=== PATIENT | female | born 2005 | race Two or more races ===

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

== ENCOUNTER 2024-06-16 11:49 | Inpatient (IN) | payer MEDICAID ==
[~2024-06-16] VITALS: Ht 149.9 cm; Wt 60.2 kg
--- NOTE | 2024-06-16 12:11 | ED.PDOC ---
HPI Comments 19 year old female presents to the ED with chief complaint of chest pain. Patient reports that she has been experiencing substernal chest pain that radiates to her back since yesterday afternoon. Patient relays that deep breaths exacerbate her pain. Patient denies any SOB, cough, fever, chills, dizziness, or headache. Chief Complaint: Chest Pain Time Seen by MD: 12:09 Reviewed Notes: Nurses Notes, Medications, Allergies Allergies: Coded Allergies: NO KNOWN ALLERGIES (Unverified , 03/04/17) Information Source: Patient Mode of Arrival: Ambulatory Severity: Moderate Timing: Days Duration: Since onset Prehospital treatment: None Location: Substernal Radiation: Back Quality: Aching Onset: At Rest Cardiac Risk Factors: None PE Risk Factors: None History of: None Associated Signs and Symptoms: None Past Medical History PAST MEDICAL HISTORY: Denies Surgical History: Denies all surgeries [employer]ER History: 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 Family History Family History: No family hx of DM, No family hx of Heart annie, No family hx of HTN Social History Smoker: Non-Smoker Alcohol: Denies ETOH Use Drugs: Denies Drug Use Lives In: Home Constitutional: denies: chills, diaphoresis, fatigue, fever, malaise, sweats, weakness, others EENTM: denies: blurred vision, double vision, ear bleeding, ear discharge, ear drainage, ear pain, ear ringing, eye pain, eye redness, hearing loss, mouth pain, mouth swelling, nasal discharge, nose bleeding, nose congestion, nose pain, photophobia, tearing, throat pain, throat swelling, voice changes, others Respiratory: denies: cough, hemoptysis, orthopnea, SOB at rest, shortness of breath, SOB with excertion, stridor, wheezing, others Cardiovascular: reports: chest pain; denies: dizzy spells, diaphoresis, Dyspnea on exertion, edema, irregular heart beat, left arm pain, lightheadedness, palpitations, PND, syncope, others Gastrointestinal: denies: abdomen distended, abdominal pain, blood streaked bowels, constipated, diarrhea, dysphagia, difficulty swallowing, hematemesis, melena, nausea, poor appetite, poor fluid intake, rectal bleeding, rectal pain, vomiting, others Genitourinary: denies: abnormal vagina bleeding, burning, dyspareunia, dysuria, flank pain, frequency, hematuria, incontinence, pain, , vagina discharge, urgency, others Neurological: denies: dizziness, fainting, headache, left sided numbness, left sided weakness, numbness, paresthesia, pre-existing deficit, right sided numbness, right sided weakness, seizure, speech problems, tingling, tremors, weakness, others Musculoskeletal: denies: back pain, gout, joint pain, joint swelling, muscle pain, muscle stiffness, neck pain, others Integumetry: denies: bruises, change in color, change in hair/nails, dryness, laceration, lesions, lumps, rash, wounds, others Allergic/Immunocompromised: denies: Difficulty Healing, Frequent Infections, Hives, Itching, others Hematologic/Lymphatic: denies: anemia, blood clots, easy bleeding, easy bruising, swollen glands, others Endocrine: denies: excessive hunger, excessive sweating, excessive thirst, excessive urination, flushing, intolerance to cold, intolerance to heat, unexplained weight gain, unexplained weight loss, others Psychiatric: denies: anxiety, bipolar disorder, depression, hopeless, panic disorder, schizophrenia, sleepless, suicidal, others All Other Systems: Reviewed and Negative Physical Exam General Appearance: No Apparent Distress, Normal HEENT: Normal ENT Inspection, PERRL/EOMI Neck: Full Range of Motion, Non-Tender, Normal, Normal Inspection Respiratory: Chest Non-Tender, Lungs Clear, No Accessory Muscle Use, No Respiratory Distress, Normal Breath Sounds Cardiovascular: No Edema, No JVD, No Murmur, No Gallop, Normal Peripheral Pulses, Regular Rate/Rhythm Breast Exam: Deferred Gastrointestinal: No Organomegaly, Non Tender, No Pulsatile Mass, Normal Bowel Sounds, Soft Genitalia: Deferred Pelvic: Deferred Rectal: Deferred Extremities: No calf tenderness, Normal capillary refill, Normal inspection, Normal range of motion, Non-tender, No pedal edema Musculoskeletal : Apperance: Normal Neurologic: Alert, office nurse II-XII nml as Tested, No Motor Deficits, Normal Affect, Normal Mood, No Sensory Deficits Cerebellar Function: Normal Reflexes: Normal Skin: Dry, Normal Color, Warm Lymphatic: No Adenopathy EKG EKG : Pulse Rate (adult): 96 [place]: Normal Cardiac Rhythm: NSR Block: None Hypertrophy: None ST: Normal Was a procedure done? Was a procedure done?: No CP Differential Dx Differential Diagnosis: Heart Failure, PAC's, V-Fib, WPW Differential Diagnosis: CHF, HTN Essential, HTN Accelerated Differential Diagnosis: Chest Wall Pain, Costochondritis, Myocardial Infarction, Pericarditis, Pneumonia X-Ray, Labs, Meds, VS Vital Signs Date Time Temp Pulse Resp B/P (MAP) Pulse Ox O2 Delivery O2 Flow Rate FiO2 06/16/24 16:15 98.0 63 17 115/72 (86) 98 98.0 06/16/24 14:02 72 06/16/24 14:00 88 15 102/71 (81) 97 06/16/24 12:44 85 06/16/24 12:30 98.6 104 15 117/88 (98) 97 98.6 06/16/24 12:30 104 15 97 Room Air* 0 21 06/16/24 12:11 96 06/16/24 11:53 96 06/16/24 11:51 98.8 96 16 122/85 (97) 98 Lab Test 06/16/24 15:34 06/16/24 13:50 06/16/24 13:08 06/16/24 12:52 Range/Units Troponin I High Sensitivity 13 17 17 </=34 ng/L Urine Color Yellow Yellow Urine Clarity Turbid H Clear Urine pH 6.0 5.0-9.0 Urine Specific [place] 1.029 1.001-1.035 Urine Protein 1+ H Negative Urine Ketones Negative Negative Urine Blood 2+ H Negative /uL Urine Nitrite Negative Negative Urine Bilirubin Negative Negative Urine Urobilinogen 2 H Negative mg/dL Urine Leukocyte Esterase 3+ Negative /uL Urine RBC 15 0 - 4 /hpf Urine WBC 60 0 - 5 /hpf Urine Squamous Epithelial Cells Few <5 /hpf Urine Calcium Oxalate Crystals Mod None Seen Urine Bacteria None seen None Seen /hpf Urine Mucus Few None Seen Urine Glucose Normal Normal mg/dL White Blood Count 10.2 4.4-10.8 10^3/uL Red Blood Count 5.30 H 4.0-5.20 10^6/uL Hemoglobin 15.2 12.2-16.2 g/dL Hematocrit 44.5 36.0-46.0 % Mean Corpuscular Volume 84.0 80.0-100.0 fL Mean Corpuscular Hemoglobin 28.7 28.0-32.0 pg Mean Corpuscular Hemoglobin Concent 34.1 32.0-36.0 g/dL Red Cell Distribution Width 13.6 11.8-14.3 % Platelet Count 217 140-450 10^3/uL Mean Platelet Volume 7.9 6.9-10.8 fL Neutrophils (%) (Auto) 69.8 37.0-80.0 % Lymphocytes (%) (Auto) 15.8 10.0-50.0 % Monocytes (%) (Auto) 13.3 H 0.0-12.0 % Eosinophils (%) (Auto) 0.8 0.0-7.0 % Basophils (%) (Auto) 0.3 0.0-2.0 % Neutrophils # (Auto) 7.1 1.6-8.6 10 ^3/uL Lymphocytes # (Auto) 1.6 0.4-5.4 10 ^3/uL Monocytes # (Auto) 1.4 H 0-1.3 10 ^3/uL Eosinophils # (Auto) 0.1 0-0.8 10 ^3/uL Basophils # (Auto) 0 0-0.2 10 ^3/uL Nucleated Red Blood Cells 0.1 % Sodium Level 139 136-145 mmol/L Potassium Level 4.0 3.5-5.1 mmol/L Chloride Level 104 98-107 mmol/L Carbon Dioxide Level 29 20-31 mmol/L Anion Gap 6 5-15 Blood Urea Nitrogen 10 9-23 mg/dL Creatinine 0.68 0.550-1.02 mg/dL Glomerular Filtration Rate Calc 128 >90 mL/min BUN/Creatinine Ratio 14.7 10.0-20.0 Serum Glucose 101 74-106 mg/dL Calcium Level 9.8 8.7-10.4 mg/dL Current Medications Medications (Trade) Dose Ordered Sig/Alena Route Start Time Stop Time Status Last Admin Acetaminophen (Tylenol Tablet) 650 mg ONCE ONCE PO 06/16/24 12:15 06/16/24 12:16 DC 06/16/24 12:33 Ketorolac Tromethamine (Toradol Injection) 15 mg ONCE ONCE IM 06/16/24 12:15 06/16/24 12:16 DC 06/16/24 12:33 Chest XR: 1. No acute cardiopulmonary pathology. CT Angio Chest: No pulmonary embolism. No aortic dissection or aneurysm. Tiny foci of air in the nondependent portion of the left ventricle and pulmonary trunk. Critical findings Critical Result: Tiny of air in the left ventricle and pulmonary trunk. Images Reviewed?: Images reviewed and evaluated by me Time of 1ST Reevaluation: 13:09 Reevaluation 1ST: Unchanged Patient Education/Counseling: Diagnosis, Treatment Family Education/Counseling: No Family Present Departure 1 Departure Time of Disposition: 15:46 (Patient with air in the ventricle pulmonary trunk. Admit patient to the hospital for further workup) Impression: Primary Impression: Chest pain Qualified Codes: R07.9 - Chest pain, unspecified Additional Impression: Shortness of breath Disposition: 09 ADMITTED INPATIENT Admit to: Tele Condition: Guarded Critical Care Note Critical Care Time?: Yes Critical care comment: Acute Chest Pain Authorized and Performed by: Amy Constantino MD Total critical care time: Approximately 48 minutes Due to a high probability of clinically significant, life threatening deterioration, the patient required my highest level of preparedness to intervene emergently and I personally spent this critical care time directly and personally managing the patient. This critical care time included obtaining a history; examining the patient; pulse oximetry; ordering and review of studies; arranging urgent treatment with development of a management plan; evaluation of patient's response to treatment; frequent reassessment; and, discussions with other providers. This critical care time was performed to assess and manage the high probability of imminent, life-threatening deterioration that could result in multi-organ failure. It was exclusive of separately billable procedures and treating other patients and teaching time. Please see my other sections and the rest of the note for further information on patient assessment and treatment. Stability Stability form required: No Heart Score Heart Score: Heart Score Response (Comments) Value History Moderate Suspicious 1 EKG Repolarization Disturb 1 Age <45 0 Risk Factors No known risk factors 0 Troponin Normal limit 0 Total 2 I personally scribed for AMY CONSTANTINO MD ([email or web address]) on 06/16/24 at 12:11. Electronically submitted by Lakhwinder Shah ([email or web address]). I personally scribed for AMY CONSTANTINO MD ([email or web address]) on 06/16/24 at 12:12. Electronically submitted by Lakhwinder Shah ([email or web address]). I personally scribed for AMY CONSTANTINO MD ([email or web address]) on 06/16/24 at 12:42. Elect ronically submitted by Lakhwinder Shah ([email or web address]). I personally scribed for AMY CONSTANTINO MD ([email or web address]) on 06/16/24 at 17:29. Elec tronically submitted by Lakhwinder Shah ([email or web address]). AMY CONSTANTINO MD Jun 16, 2024 12:11
--- NOTE | 2024-06-16 12:26 | ECG ---
[facility] Test Date: 2024-06-16 Test Time: 11:53:27 Pat Name: BRONSON OSMAN Department: er Room: 0297T Gender: F Wrister: mariano : 2005 Requested By: AMY ROSS Order Number: [id number] Reading MD: Milton Tobin Measurements Intervals [place] Rate: 96 P: 64 AK: 114 QRS: 68 QRSD: 88 T: 17 QT: 351 QTc: 444 Interpretive Statements Sinus rhythm Borderline short AK interval Borderline T abnormalities, anterior leads Electronically Signed On 06-19-2024 14:28:31 PDT by Milton Tobin Please click the below link to view image of tracing.
[2024-06-16 12:30] VITALS: PULSE 104; RESP 15; O2SAT 97
--- NOTE | 2024-06-16 12:32 | DVH ---
Chest x-ray Technique: PA and lateral views REASON FOR EXAM: chest pain Comparison: None FINDINGS: Heart size is normal. There are no infiltrates or effusions. No bony thoracic abnormaliti es. IMPRESSION: 1. No acute cardiopulmonary pathology.
[2024-06-16] MEDS: ACETAMINOPHEN 325 MG TAB PO ONE (12:33)
[2024-06-16] MEDS: KETOROLAC TROMETH 30 MG/ML 1ML VIAL IM ONE (12:33)
[2024-06-16 13:10] LABS: Urine Bacteria None Seen /hpf (None Seen)
[2024-06-16 13:17] LABS: Basophils # (auto) 0 10 ^3/uL (0-0.2); Basophils % (auto) 0.3 % (0.0-2.0); Eosinophils # (auto) 0.1 10 ^3/uL (0-0.8); Eosinophils % (auto) 0.8 % (0.0-7.0); Hematocrit 44.5 % (36.0-46.0); Hemoglobin 15.2 g/dL (12.2-16.2); Lymphocytes # (auto) 1.6 10 ^3/uL (0.4-5.4); Lymphocytes % (auto) 15.8 % (10.0-50.0); Mean Corpuscular Hemoglobin 28.7 pg (28.0-32.0); Mean Corpuscular Hgb Conc. 34.1 g/dL (32.0-36.0); Monocytes # (auto) 1.4 10 ^3/uL (0-1.3); Monocytes % (auto) 13.3 % (0.0-12.0); Neutrophils # (auto) 7.1 10 ^3/uL (1.6-8.6); Neutrophils % (auto) 69.8 % (37.0-80.0); Nucleated Red Blood Cells % 0.1 %; Platelet Count (auto) 217 10^3/uL (140-450); Red Cell Distribution Width 13.6 % (11.8-14.3); White Blood Cell 10.2 10^3/uL (4.4-10.8)
[2024-06-16 13:26] LABS: Urine Blood 2+ /uL (Negative); Urine Clarity Turbid (Clear); Urine Color Yellow (Yellow); Urine Mucus FEW (None Seen); Urine Protein, UAD 1+ (Negative); Urine Specific Gravity 1.029 (1.001-1.035); Urine Urobilinogen 2 mg/dL (Negative); Urine WBC 60 /hpf (0 - 5)
[2024-06-16 13:32] LABS: Anion Gap 6 (5-15); Carbon Dioxide 29 mmol/L (20-31); Chloride 104 mmol/L (98-107); Sodium 139 mmol/L (136-145)
[2024-06-16 13:33] LABS: Calcium 9.8 mg/dL (8.7-10.4)
[2024-06-16 13:37] LABS: Glucose 101 mg/dL (74-106)
[2024-06-16 13:38] LABS: BUN/Creatinine Ratio 14.7 (10.0-20.0); Blood Urea Nitrogen 10 mg/dL (9-23)
[2024-06-16] MEDS: IOHEXOL 350 MG/ML 100ML IJ ONE (16:50)
--- NOTE | 2024-06-16 17:23 | DVH ---
CTA Chest with intravenous contrast INDICATION: chest pain, sob, abnormal ekg Comparison Study: None available at time of dictation. TECHNIQUE: Multidetector spiral CTA of the chest was performed of the chest with intravenous contrast . PULMONARY ANGIOGRAPHY PROTOCOL was utilized using a bolus-tracking technique centered on the main p ulmonary artery. Axial, coronal and sagittal multiplanar and MIP reformats were performed. Radiation Dose : 1. Chest: CTDI volume is 7.69 mGy. Dose-length product is 239.3 mGy*cm The dose indicators for CT are the volume Computed Tomography (CT) Dose Index (CTDIvol) and the Dose Length Product (DLP), and are measured in units of mGy and mGy-cm, respectively. These indicators are not patient dose, but values generated from the CT scanner acquisition factors. The report includes radiation exposure data for exposures received during this examination. Findings: Pulmonary artery: No evidence of pulmonary embolism. Tiny foci of air seen in the nondependent portion of the pulmonary trunk. Lower neck: Within normal limits. Lungs: Within normal limits. Heart/Vascular Structures: Tiny foci of air seen in the nondependent portion of the left ventricle. Lymph Nodes: No adenopathy Pleura: Within normal limits.. Musculoskeletal: Within normal limits.. Body wall: Within normal limits.. Upper abdomen: Within normal limits. IMPRESSION: No pulmonary embolism. No aortic dissection or aneurysm. Tiny foci of air in the nondependent portion of the left ventricle and pulmonary trunk. Critical findings Critical Result: Tiny of air in the left ventricle and pulmonary trunk. Findings discussed with AMY ROSS at 06/16/2024 05:20 PM, and acknowledged receipt and understandi ng of the findings.
[2024-06-16] MEDS ORDERED: ONDANSETRON HCL 4 MG/2 ML VIAL IV PRN (22:30)
[2024-06-16] MEDS ORDERED: MORPHINE SULFATE INJ 2 MG/ml SYRG IV PRN ×2 (22:30)
[2024-06-16] MEDS ORDERED: NITROGLYCERIN 0.4 MG SL TAB SL PRN (22:30)
[2024-06-16] MEDS ORDERED: ACETAMINOPHEN 325 MG TAB PO PRN (22:30)
--- NOTE | 2024-06-16 23:41 | DVHHPRES ---
History of Present Illness Resident Creating Document: DANIEL RUSSELL RESIDENT History of Present Illness Shital Perez a 19 years old female with no significant PMH presented to the ED with the chief complaints of left-sided chest pain since 2 days prior to admission. Patient reported on Sunday morning she woke up with a chest pain which is on and off initially and later changed to constant which is 10/10, sharp, radiating to back and left arm, aggravated by lying down and the back but no relieving factors, associated mild SOB initially. Patient has reports on Sunday she had vomiting and chills and then Sunday started having chest pain. On my assessment patient denies sick contacts, recent travel, for a flu-like illness, abdominal pain, diarrhea, diaphoresis, palpitations, headache and other acute associated symptoms Past Medical History Denies Past Surgical History: None Family History: None Past Social History Lives with a friend. Denies smoking, alcohol and other drug abuse Review of Systems Constitutional: No: Fever, Chills, Sweats, Weakness, Malaise, Other Eyes: No: Pain, Vision change, Conjunctivae inflammation, Eyelid inflammation, Other, Redness ENT: No: Ear pain, Ear discharge, Nose pain, Nose discharge, Nose congestion, Mouth pain, Mouth swelling, Throat pain, Throat swelling, Other Respiratory: Shortness of breath Cardiovascular: Chest Pain Gastrointestinal: Vomiting Genitourinary: No Dysuria, No Frequency, No Incontinence, No Hematuria, No Retention, No Other Musculoskeletal: No: other, neck pain, shoulder pain, arm pain, back pain, hand pain, leg pain, foot pain Skin: No: Rash, Lesions, Jaundice, Bruising, Other Neurological: No: Weakness, Numbness, Incoordination, Change in speech, Co nfusion, Seizures, Other Allergies: Coded Allergies: NO KNOWN ALLERGIES (Unverified , 03/04/17) Medications Current Medications Medications Dose Ordered Sig/Alena Route Start Time Stop Time Status Last Admin Dose Admin Sodium Chloride 10 ml Q8HR IV 06/17/24 06:00 Acetaminophen 325 mg Q4HP PRN PO 06/16/24 22:30 Ondansetron HCl 4 mg Q4HP PRN IV 06/16/24 22:30 Morphine Sulfate 2 mg Q4HPRN PRN IV 06/16/24 22:30 Nitroglycerin 0.4 mg Q5MINP PRN SL 06/16/24 22:30 Morphine Sulfate 2 mg Q30M PRN IV 06/16/24 22:30 Exam Vital Signs Vital Signs Date Time Temp Pulse Resp B/P (MAP) Pulse Ox O2 Delivery O2 Flow Rate FiO2 06/16/24 22:52 98.2 76 16 109/81 (90) 100 98.2 06/16/24 12:30 Room Air* 0 21 Exam General Appearance: Alert, Oriented X3, Cooperative, Not in acute distress HEENT: Atraumatic, Mucous membranes moist/pink Respiratory: Clear to auscultation, Normal air movement, No added sounds Cardiovascular: Regular rate, Normal S1, Normal S2, No murmurs Abdominal: Active bowel sounds, Soft, no distention, no tenderness Extremities: No edema, Normal pulses, No tenderness/swelling Skin: No Significant rash, Neuro: Normal speech, sensorimotor deficits none Psych/Mental Status: Mental status NL, Mood NL Nurse was there as sharperone during examination Labs/Xrays Labs Test 06/16/24 15:34 06/16/24 15:25 06/16/24 13:08 06/16/24 12:52 Range/Units Troponin I High Sensitivity 13 </=34 ng/L Beta HCG, Quantitative 0.1 L 1.5-4.2 mIU/mL B-Type Natriuretic Peptide 17.87 0-100 pg/mL Urine Color Yellow Yellow Urine Clarity Turbid H Clear Urine pH 6.0 5.0-9.0 Urine Specific [place] 1.029 1.001-1.035 Urine Protein 1+ H Negative Urine Ketones Negative Negative Urine Blood 2+ H Negative /uL Urine Nitrite Negative Negative Urine Bilirubin Negative Negative Urine Urobilinogen 2 H Negative mg/dL Urine Leukocyte Esterase 3+ Negative /uL Urine RBC 15 0 - 4 /hpf Urine WBC 60 0 - 5 /hpf Urine Squamous Epithelial Cells Few <5 /hpf Urine Calcium Oxalate Crystals Mod None Seen Urine Bacteria None seen None Seen /hpf Urine Mucus Few None Seen Urine Glucose Normal Normal mg/dL White Blood Count 10.2 4.4-10.8 10^3/uL Red Blood Count 5.30 H 4.0-5.20 10^6/uL Hemoglobin 15.2 12.2-16.2 g/dL Hematocrit 44.5 36.0-46.0 % Mean Corpuscular Volume 84.0 80.0-100.0 fL Mean Corpuscular Hemoglobin 28.7 28.0-32.0 pg Mean Corpuscular Hemoglobin Concent 34.1 32.0-36.0 g/dL Red Cell Distribution Width 13.6 11.8-14.3 % Platelet Count 217 140-450 10^3/uL Mean Platelet Volume 7.9 6.9-10.8 fL Neutrophils (%) (Auto) 69.8 37.0-80.0 % Lymphocytes (%) (Auto) 15.8 10.0-50.0 % Monocytes (%) (Auto) 13.3 H 0.0-12.0 % Eosinophils (%) (Auto) 0.8 0.0-7.0 % Basophils (%) (Auto) 0.3 0.0-2.0 % Neutrophils # (Auto) 7.1 1.6-8.6 10 ^3/uL Lymphocytes # (Auto) 1.6 0.4-5.4 10 ^3/uL Monocytes # (Auto) 1.4 H 0-1.3 10 ^3/uL Eosinophils # (Auto) 0.1 0-0.8 10 ^3/uL Basophils # (Auto) 0 0-0.2 10 ^3/uL Nucleated Red Blood Cells 0.1 % Sodium Level 139 136-145 mmol/L Potassium Level 4.0 3.5-5.1 mmol/L Chloride Level 104 98-107 mmol/L Carbon Dioxide Level 29 20-31 mmol/L Anion Gap 6 5-15 Blood Urea Nitrogen 10 9-23 mg/dL Creatinine 0.68 0.550-1.02 mg/dL Glomerular Filtration Rate Calc 128 >90 mL/min BUN/Creatinine Ratio 14.7 10.0-20.0 Serum Glucose 101 74-106 mg/dL Calcium Level 9.8 8.7-10.4 mg/dL Assessment/Plan Assessment/Plan # pain rule out ACS -reviewed EKG -troponins x3 were negative -ordered chest pain protocol -monitor for symptoms # ? Left ventricular air embolism -evident on CT angiography -consulted cardiology for further evaluation # Hypokalemia -monitored lab -repleting Cardiac diet for now No VTE PPX No GI PPX Goals of care discussed with the patient for more than 27 minutes: Full code status Case management discussed with Dr. Leblanc, patient and nurse Plan discussed with: Patient, Other (RN) My Orders Orders - DANIEL RUSSELL Procedure Category Date Status Time Admit ADMIT 06/16/24 Transmitted 22:20 Allergies FATEMEH 06/16/24 In Process 22:20 Code Status CODE 06/16/24 Transmitted 22:20 Sodium Chloride Lock PHA 06/17/24 In Process (Saline Lock Ns) 06:00 Acetaminophen Tablet PHA 06/16/24 In Process (Tylenol Tablet) 22:30 Ondansetron Hcl PHA 06/16/24 In Process (Zofran) 22:30 Complete Blood Count LAB 06/17/24 Verified 04:00 Comprehensive LAB 06/17/24 Verified Metabolic Panel 04:00 Cardiac DIET 06/17/24 Transmitted Diet-2gna,Lofat,Lochol Breakfast Morphine Sulfate PHA 06/16/24 In Process Injection 22:30 Nitroglycerin PHA 06/16/24 In Process Sublingual (Ntrostat 22:30 Morphine Sulfate PHA 06/16/24 In Process Injection 22:30 Oxygen By Nasal RT 06/16/24 Transmitted Cannula 22:20 Stat Ekg For Chest FATEMEH 06/16/24 In Process Pain 22:20 Notify Md Of Changes FATEMEH 06/16/24 In Process From Base 22:20 Painter Set For FATEMEH 06/16/24 In Process 24 Hours 22:20 Emergency Dysrhythmia FATEMEH 06/16/24 In Process Protocol 22:20 Rhythm Strips Once FATEMEH 06/16/24 In Process Every Shift 22:20 * Cardiology Consult CONS 06/16/24 Transmitted 23:02 Date of Service: Jun 16, 2024 Billing Provider: TOBY LEBLANC MD Common Visit Codes: [id number] INP/OBS CARE (HIGH) DANIEL RUSSELL RESIDENT Jun 16, 2024 23:41 TOBY LEBLANC MD Jun 17, 2024 08:57
[2024-06-17 03:06] LABS: Basophils # (auto) 0 10 ^3/uL (0-0.2); Basophils % (auto) 0.4 % (0.0-2.0); Eosinophils # (auto) 0.2 10 ^3/uL (0-0.8); Hematocrit 42.2 % (36.0-46.0); Hemoglobin 14.4 g/dL (12.2-16.2); Lymphocytes % (auto) 21.3 % (10.0-50.0); Mean Corpuscular Hemoglobin 28.6 pg (28.0-32.0); Mean Corpuscular Volume 84.2 fL (80.0-100.0); Monocytes % (auto) 10.7 % (0.0-12.0); Neutrophils # (auto) 6.1 10 ^3/uL (1.6-8.6); Neutrophils % (auto) 65.6 % (37.0-80.0); Nucleated Red Blood Cells % 0.1 %; Platelet Count (auto) 215 10^3/uL (140-450); Red Blood Cells 5.01 10^6/uL (4.0-5.20); Red Cell Distribution Width 14.2 % (11.8-14.3); White Blood Cell 9.3 10^3/uL (4.4-10.8)
[2024-06-17 03:20] LABS: Alkaline Phosphatase 84 U/L (46-116)
[2024-06-17 03:21] LABS: Alanine Aminotransferase 24 U/L (7-40); Albumin 4.7 g/dL (3.2-4.8); Anion Gap 8 (5-15); Aspartate Aminotransferase 23 U/L (13-40); BUN/Creatinine Ratio 21.8 (10.0-20.0); Bilirubin, Total 0.5 mg/dL (0.2-1.0); Blood Urea Nitrogen 12 mg/dL (9-23); Calcium 9.7 mg/dL (8.7-10.4); Carbon Dioxide 28 mmol/L (20-31); Chloride 103 mmol/L (98-107); Glucose 81 mg/dL (74-106); Potassium 3.2 mmol/L (3.5-5.1); Sodium 139 mmol/L (136-145); Total Protein 7.2 g/dL (5.7-8.2)
[2024-06-17] MEDS: SODIUM CHLOR 0.9% PF (SALINE LOCK) 10ML VIAL/SYR IV SCH (06:11)
[2024-06-17] MEDS: POTASSIUM EFFERVESENT TAB 25 MEQ PO ONE (06:47)
[2024-06-17 08:00] VITALS: PULSE 82; RESP 20; O2SAT 96
[2024-06-17] MEDS: cefTRIAXone 1GM/50ML D5W 50 ML IV ONE (08:00)
[2024-06-17 08:34] LABS: Amphetamine Screen, Urine Neg (NEGATIVE); Barbiturate Scree,Urine Neg (NEGATIVE); Benzodiazephine Screen, Urine Neg (NEGATIVE); Cannabinoid Screen, Urine Neg (NEGATIVE); Cocaine Screen, Urine Neg (NEGATIVE); Opiate Scree,Urine Neg (NEGATIVE); Phencyclidine Screen, Urine Neg (NEGATIVE)
--- NOTE | 2024-06-17 09:16 | DVHINCON2 ---
Date Seen: Jun 17, 2024 Referring Physician Reason for Consultation chest pain History of Present Illness 19 years old female with no past medical history who presents to the emergency department with a chief complaint of chest pain described as mild/moderate sharp-like pain that started 2 days ago, progressively getting worse and radiating to the back, patient reports repositioned into her left side relieves the pain partially, she denies shortness of breath, she denies any recent episodes of trauma, infections or abdominal pain. EKG and troponins were unremarkable. CT angiogram of the chest showed air in the left ventricle and pulmonary trunk for which the patient was started on 100% oxygen supplementation with a non-rebreather mask and reposition to the left lateral decubitus and Trendelenburg. Echocardiogram is pending. Colchicine 1.2 mg once and followed by 0.6 mg daily and ibuprofen 600 mg t.i.d. were started to reduce pericardial inflammation as pericardial chest pain is suspected Urinalysis was positive for urinary tract infection for which the patient was started on ceftriaxone IV. Past Medical History Denies. Past Surgical History Denies Allergies: Coded Allergies: NO KNOWN ALLERGIES (Unverified , 03/04/17) Current Medications Current Medications Medications (Trade) Dose Ordered Sig/Alena Route PRN Reason Start Time Stop Time Status Last Admin Sodium Chloride (Saline Lock Ns) 10 ml Q8HR IV 06/17/24 06:00 06/17/24 06:11 Acetaminophen (Tylenol Tablet) 325 mg Q4HP PRN PO MILD PAIN (1-3 PAIN SCALE) 06/16/24 22:30 Ondansetron HCl (Zofran) 4 mg Q4HP PRN IV NAUSEA / VOMITING 06/16/24 22:30 Morphine Sulfate 2 mg Q4HPRN PRN IV SEVERE PAIN (7-10 PAIN SCALE) 06/16/24 22:30 Nitroglycerin (Ntrostat Sublingual) 0.4 mg Q5MINP PRN SL FOR CHEST PAIN 06/16/24 22:30 Morphine Sulfate 2 mg Q30M PRN IV FOR CHEST PAIN 06/16/24 22:30 Review of Systems Constitutional: No: Fever, Chills, Sweats, Weakness, Malaise, Other Eyes: No: Pain, Vision change, Conjunctivae inflammation, Eyelid inflammation, Other, Redness ENT: No: Ear pain, Ear discharge, Nose pain, Nose discharge, Nose congestion, Mouth pain, Mouth swelling, Throat pain, Throat swelling, Other Respiratory: No Wheezing, Hemoptysis, Pleuritic Pain, Sputum, Wheezing, Other Cardiovascular: Yes: Mild Chest pain No: Palpitations, Orthopnea, Paroxysmal Noc. Dyspnea, Edema, Lt Headedness, Other Gastrointestinal: No: Nausea, Vomiting, Abdominal Pain, Diarrhea, Constipation, Melena, Hematochezia, Other Musculoskeletal: No: other, neck pain, shoulder pain, arm pain, back pain, hand pain, leg pain, foot pain Neurological:; No: Weakness, Numbness, Incoordination, Change in speech, Confusion, Seizures Vital Signs Vital Signs Date Time Temp Pulse Resp B/P (MAP) Pulse Ox O2 Delivery O2 Flow Rate FiO2 06/17/24 08:00 98.0 82 20 93/49 (64) 96 98.0 06/17/24 08:00 Room Air* 0 21 Physical Exam Examination General Appearance: Alert, Oriented X3, Cooperative, No acute distress HEENT: EOMI Respiratory: Clear to auscultation, Normal air movement Cardiovascular: Regular rate, Normal S1, Normal S2 Abdominal: Normal bowel sounds Extremities: No cyanosis, No edema, Normal pulses, No tenderness/swelling Skin: No rashes, No breakdown Neuro: Normal gait, Normal speech, Strength at 5/5 X4 ext, Normal tone, Sensation intact, Cranial nerves 3-12 NL, Reflexes 2+ Psych/Mental Status: Mental status NL, Mood NL Labs/Diagnostic Data Labs Test 06/17/24 08:24 06/17/24 02:06 06/16/24 15:34 06/16/24 15:25 Range/Units White Blood Count 9.3 4.4-10.8 10^3/uL Red Blood Count 5.01 4.0-5.20 10^6/uL Hemoglobin 14.4 12.2-16.2 g/dL Hematocrit 42.2 36.0-46.0 % Mean Corpuscular Volume 84.2 80.0-100.0 fL Mean Corpuscular Hemoglobin 28.6 28.0-32.0 pg Mean Corpuscular Hemoglobin Concent 34.0 32.0-36.0 g/dL Red Cell Distribution Width 14.2 11.8-14.3 % Platelet Count 215 140-450 10^3/uL Mean Platelet Volume 8.3 6.9-10.8 fL Neutrophils (%) (Auto) 65.6 37.0-80.0 % Lymphocytes (%) (Auto) 21.3 10.0-50.0 % Monocytes (%) (Auto) 10.7 0.0-12.0 % Eosinophils (%) (Auto) 2.0 0.0-7.0 % Basophils (%) (Auto) 0.4 0.0-2.0 % Neutrophils # (Auto) 6.1 1.6-8.6 10 ^3/uL Lymphocytes # (Auto) 2.0 0.4-5.4 10 ^3/uL Monocytes # (Auto) 1.0 0-1.3 10 ^3/uL Eosinophils # (Auto) 0.2 0-0.8 10 ^3/uL Basophils # (Auto) 0 0-0.2 10 ^3/uL Nucleated Red Blood Cells 0.1 % Sodium Level 139 136-145 mmol/L Potassium Level 3.2 L 3.5-5.1 mmol/L Chloride Level 103 98-107 mmol/L Carbon Dioxide Level 28 20-31 mmol/L Anion Gap 8 5-15 Blood Urea Nitrogen 12 9-23 mg/dL Creatinine 0.55 0.550-1.02 mg/dL Glomerular Filtration Rate Calc 134 >90 mL/min BUN/Creatinine Ratio 21.8 H 10.0-20.0 Serum Glucose 81 74-106 mg/dL Calcium Level 9.7 8.7-10.4 mg/dL Magnesium Level 2.3 1.6-2.6 mg/dL Total Bilirubin 0.5 0.2-1.0 mg/dL Aspartate Amino Transferase (AST) 23 13-40 U/L Alanine Aminotransferase (ALT) 24 7-40 U/L Alkaline Phosphatase 84 46-116 U/L Total Protein 7.2 5.7-8.2 g/dL Albumin 4.7 3.2-4.8 g/dL Thyroid Stimulating Hormone (TSH) 2.35 0.55-4.78 uIU/mL Troponin I High Sensitivity 13 </=34 ng/L Beta HCG, Quantitative 0.1 L 1.5-4.2 mIU/mL B-Type Natriuretic Peptide 17.87 0-100 pg/mL Test 06/16/24 13:08 Range/Units Urine Color Yellow Yellow Urine Clarity Turbid H Clear Urine pH 6.0 5.0-9.0 Urine Specific [place] 1.029 1.001-1.035 Urine Protein 1+ H Negative Urine Ketones Negative Negative Urine Blood 2+ H Negative /uL Urine Nitrite Negative Negative Urine Bilirubin Negative Negative Urine Urobilinogen 2 H Negative mg/dL Urine Leukocyte Esterase 3+ Negative /uL Urine RBC 15 0 - 4 /hpf Urine WBC 60 0 - 5 /hpf Urine Squamous Epithelial Cells Few <5 /hpf Urine Calcium Oxalate Crystals Mod None Seen Urine Bacteria None seen None Seen /hpf Urine Mucus Few None Seen Urine Glucose Normal Normal mg/dL Urine Opiates Screen Neg NEGATIVE Urine Fentanyl Screen Neg NEGATIVE Urine Barbiturates Screen Neg NEGATIVE Urine Phencyclidine Screen Neg NEGATIVE Urine Amphetamines Screen Neg NEGATIVE Urine Benzodiazepines Screen Neg NEGATIVE Urine Cocaine Screen Neg NEGATIVE Urine Cannabinoids Screen Neg NEGATIVE Assessment Chest pain likely due to acute pericarditis Air embolism in Left ventricle/pulmonary trunk based on CT angiogram Urinary tract infection Hypotension Hypokalemia Overweight Plan/Recommendation On 100% oxygen supplementation on a non-rebreather mask to promote reabsorption of nitrogen from air bubbles. Left lateral decubitus position (Clare's maneuver) and Trendelenburg to prevent systemic embolization Echocardiogram is pending Colchicine 1.2 mg once, followed by 0.6 mg daily Ibuprofen 600 mg t.i.d. Continue antibiotics per hospitalist. Lifestyle modification counseling Potassium and magnesium replacement as needed. K >4mg and Mg >2mg Patient was unable to tolerate more than 5 minutes on Stress test EKG does not show any ST changes As patient was unable unable to tolerate more than 5 minutes on a stress test and EKG does not show any ST changes we recommend to continue pericarditis treatment with colchicine and ibuprofen as the most likely cause of chest pain on this patient, we are signing off as there is no further workup from cardiology standpoint. Please let us know if further input is required. Case discussed with Dr. Cleveland Critical care, time spent: 41 minutes Plan discussed with: Patient Date of Service: Jun 17, 2024 Billing Provider: JOEL CLEVELAND MD Cardiology Common Codes: [id number] INP/OBS CARE (High) MARCELINA REBOLLEDO RESIDENT Jun 17, 2024 09:16
[2024-06-17] MEDS: cefTRIAXone 1GM/50ML D5W 50 ML IV SCH (09:45)
[2024-06-17 10:15] VITALS: PULSE 54; RESP 18; O2SAT 100
--- NOTE | 2024-06-17 11:35 | ECG ---
[facility] Test Date: 2024-06-16 Test Time: 12:43:25 Pat Name: BRONSON OSMAN Department: er Room: 0297T Gender: F Welder First Class: evelyn : 2005 Requested By: AMY ROSS Order Number: [id number] Reading MD: Milton Tobin Measurements Intervals [place] Rate: 79 P: 58 [place]: 115 QRS: 80 QRSD: 85 T: 18 QT: 362 QTc: 416 Interpretive Statements Sinus arrhythmia Borderline short [place] interval Borderline Q waves in inferior leads Electronically Signed On 06-19-2024 14:28:44 PDT by Milton Tobin Please click the below link to view image of tracing.
[2024-06-17] MEDS: COLCHICINE 0.6 MG CAP PO ONE (12:57)
--- NOTE | 2024-06-17 14:20 | DVHSR ---
APPROVED REPORT EXAM: Two-dimensional and M-mode echocardiogram with Doppler and color Doppler. Blood Pressure: 95/61 mmHg INDICATION Chest Pain RISK FACTORS Height: 4'11", Weight: 139 DIMENSIONS LVDd4.3 (3.8-5.7cm)LA (2D)3.7 (1.9-4.0cm)Aortic Root2.7 (2.0-3.7cm) LVDs2.8 (2.5-4.0cm)LA (MM) (1.9-4.0cm)Aortic Cusp Exc1.7 (1.5-2.0cm) EF (%) 60.0 (55-70%)Rt. Atrium3.7 (1.9-4.0cm)Asc. Aorta cm IVSd0.9 (0.7-1.1cm)RV (D)3.4 (1.8-2.4cm) PWd0.8 (0.7-1.1cm) Mitral Valve MitralMitral Stenosis E wave0.78m/sMV Mean GR.mmHg A wave0.35m/sMV Peak GR.mmHg E/A ratio2.22D MVAcm2 DECEL [id number] 1/2 Timems Aortic Valve Aortic ValveAortic Stenosis V10.90m/Araceli Mean GR.2mmHg V21.00m/Araceli Peak GR.4mmHg LVOT Diameter1.8 (1.8-2.4cm)Doppler AVA2.29cm2 Pulmonic Valve V20.86m/s Conclusion Normal left ventricular size and dimension. Normal left ventricular systolic function estimated ejec tion fraction 55%. Normal diastolic function. Normal right ventricular size and dimension. Normal right ventricular systolic function. Normal biatrial size and dimension. Normal aortic valve structure and function. Normal mitral valve structure and function. Normal tricuspid valve structure and function. The pulmonary valve is grossly normal. No pericardial effusion.
[2024-06-17] MEDS: IBUPROFEN 600 MG TAB PO SCH (14:33)
[2024-06-17 15:00] VITALS: BP 99/63; PULSE 79; RESP 16
--- NOTE | 2024-06-17 16:12 | DVHPNRES ---
Progress Note Date Seen: Jun 17, 2024 Resident Creating Document: JANNETH MCCABE RESIDENT Medical Necessity Reason Pt with a Central, PICC or Fol: No Subjective Review of Systems Patient is 19 years old female with no significant past medical or surgical history came with a complaint of left-sided chest pain started 2 days before. As per patient patient started having left-sided chest pain started 2 days before, sharp/pressure-like, 10/10 in severity, radiating to the back, increased with the deep breathing, decreased with sleeping in the left lateral side. Pain was associated with some short of breath and some dizziness. Patient also reported having some nausea and vomiting weekly watery content or foot 3 days before. Patient denied any fever, cough, diarrhea, change in vision, dysarthria acute joint swelling, denied running nose or sick contact, trauma to the chest or scuba diving. EKG sinus rhythm. Lab workup revealed mild hypokalemia potassium 3.2. Troponin and BNP negative. CT angio revealed-No pulmonary embolism. No aortic dissection or aneurysm. Tiny foci of air in the nondependent portion of the left ventricle and pulmonary trunk. CXR no acute cardiopulmonary pathology noted. Urinalysis revealed leukocyte esterase 3+, WBC 60, RBC 15. UDS was negative. PMH-none PSH- none Allergy- NKDA Personal History/ Social History- Lives with a friend. Denies smoking, alcohol and other drug abuse Patient was seen today at the bedside. Patient reports feeling better today Cardiovascular- deny acute chest pain or shortness of breath or cough or palpitation Respiratory- denies cough or short of breath or wheezing Gastrointestinal- denies any rectal bleeding, nausea or vomiting Musculoskeletal-denies acute joint swelling or tenderness or redness Neurological- denies acute dysarthria, dysphagia, change in vision Psychiatry- denies depression or SI or HI Skin- denies acute rash or purpura Objective vital signs Vital Sign Date Time Temp Pulse Resp B/P (MAP) Pulse Ox O2 Delivery O2 Flow Rate FiO2 06/17/24 14:33 98.1 06/17/24 13:09 54 06/17/24 12:38 98/62 (74) 06/17/24 12:32 14 99 06/17/24 10:15 Room Air* 0 21 medications Current Medications Medications Dose Ordered Sig/Alena Route Start Time Stop Time Status Last Admin Dose Admin Sodium Chloride 10 ml Q8HR IV 06/17/24 06:00 06/17/24 14:34 10 ML Acetaminophen 325 mg Q4HP PRN PO 06/16/24 22:30 Ondansetron HCl 4 mg Q4HP PRN IV 06/16/24 22:30 Morphine Sulfate 2 mg Q4HPRN PRN IV 06/16/24 22:30 Nitroglycerin 0.4 mg Q5MINP PRN SL 06/16/24 22:30 Morphine Sulfate 2 mg Q30M PRN IV 06/16/24 22:30 Ceftriaxone Sodium 50 ml @ 100 mls/hr DAILY@09 IV 06/17/24 09:00 06/17/24 09:45 100 MLS/HR Colchicine 0.6 mg DAILY PO 06/18/24 10:00 Ibuprofen 600 mg TID PO 06/17/24 14:00 06/17/24 14:33 600 MG Examination General examination- awake, alert, oriented, conversant HEENT- PEERLA, no acute nasal discharge Cardiovascular- chest wall tenderness positive on palpation, S1-S2 audible, rate and rhythm regular, no murmur Respiratory- CTAB, no wheeze or rhonchi Gastrointestinal-nontender, bowel sound+. Nondistended Musculoskeletal-no acute joint swelling or tenderness or redness# Lower extremity- no leg edema Neurological- cranial nerves intact, no acute dysarthria or dysphagia Psychiatry- denies depression or SI or HI Skin- no acute rash or purpura laboratory and microbiology Laboratory Tests 06/17/24 02:06 Test 06/17/24 02:06 Range/Units Serum Glucose 81 74-106 mg/dL Problem List/Assessment/Plan Problem List/Assessment/Plan #Acute chest pain likely due to pericarditis, musculoskeletal chest pain, rule out ACS, pneumonia, pulmonary embolism -CT angio revealed-No pulmonary embolism. No aortic dissection or aneurysm. Tiny foci of air in the nondependent portion of the left ventricle and pulmonary trunk- LIKELY IATROGENIC -patient is seen by Cardiology recommendation reviewed and appreciated. -cardiology recommended- On 100% oxygen supplementation on a non-rebreather mask to promote reabsorption of nitrogen from air bubbles. Left lateral decubitus position ([place]'s maneuver) and Trendelenburg to prevent systemic embolization Colchicine 1.2 mg once, followed by 0.6 mg daily Ibuprofen 600 mg t.i.d. Potassium replacement as needed Stress test, Louis protocol scheduled for today in the afternoon Lifestyle modification counseling # suspected Pericarditis, musculoskeletal chest pain, rule out ACS, pneumonia, pulmonary embolism -CT angio revealed-No pulmonary embolism. No aortic dissection or aneurysm. Tiny foci of air in the nondependent portion of the left ventricle and pulmonary trunk- likely iatrogenic -patient is seen by Cardiology recommendation reviewed and appreciated. -cardiology recommended- On 100% oxygen supplementation on a non-rebreather mask to promote reabsorption of nitrogen from air bubbles. Left lateral decubitus position (Clare's maneuver) and Trendelenburg to prevent systemic embolization Colchicine 1.2 mg once, followed by 0.6 mg daily Ibuprofen 600 mg t.i.d. Potassium replacement as needed Stress test, Louis protocol scheduled for today in the afternoon Lifestyle modification counseling # Acute cystitis -pending urine CS -continue ceftriaxone 1 g IV daily -maintain adequate hydration # hypotension -maintain adequate hydration modal hydration # suspected musculoskeletal chest pain -chest wall tenderness positive -continue ibuprofen 600 mg t.i.d. # overweight, BMI 28.3 -patient was counseled about weight reduction, healthy diet, physical activity Goals of care/advance care planning; FULL CODE; discussed with the patient PUD prophylaxis: DVT prophylaxis: Patient ambulating Plan discussed with Dr. Jason,,, nursing staff, patient Total time spent on patient evaluation, chart review, assessment and plan, discussion discussion >20 minutes Plan discussed with: Patient Plan discussed with: Patient (RN), Other Date of Service: Jun 17, 2024 Billing Provider: TERI JASON MD Common Visit Codes: [id number] INP/OBS CARE(HIGH) JANNETH MCCABE RESIDENT Jun 17, 2024 16:12 TERI JASON MD Jun 17, 2024 20:39
--- NOTE | 2024-06-17 17:05 | DVHCARD ---
Cardiology Stress Test [place] Treadmill Stress Test [place] Referring MD: MD Wang resident Protocol: Louis (without cardiolite) Reason for referral: Chest Pain Target heart Rate:@85%: 170 Percent MPHR: 200 METS: 7 Resting Heart rate: 79 Resting Blood Pressure: 99/63 Exercise Heart Rate: 136 Exercise Blood Pressure: 135/85 Reason for Termination of Test: Chest Pain Baseline EKG: Normal sinus rhythm Stress EKG: Sinus tachycardia Functional Capacity: Mildly Decreased Heart Rate Response: Adequate Blood Pressure Response: Normal Clinical response: Non-ischemic Arrhythmia?: No Cardiolite Injected?: No ST-T Changes: Inconclusive Probability of Inducible Ische: Low Comments: Patient was not able to finish test due to chest pain. Stopped at 5min EULA ERAZO Jun 17, 2024 17:05
[2024-06-17 20:56] VITALS: BP 103/71; PULSE 79; RESP 19; TEMP 97.7; O2SAT 96
[2024-06-17 20:57] VITALS: BP 103/71; PULSE 79; RESP 18; TEMP 97.3; O2SAT 96
[2024-06-18] VITALS (7 sets, daily range): BP systolic 99–101; BP diastolic 62–74; PULSE 56–71; RESP 15–18; TEMP 36.6; O2SAT 97–99
[2024-06-18 06:59] LABS: Basophils # (auto) 0 10 ^3/uL (0-0.2); Basophils % (auto) 0.5 % (0.0-2.0); Eosinophils # (auto) 0.2 10 ^3/uL (0-0.8); Eosinophils % (auto) 3.5 % (0.0-7.0); Hematocrit 41.2 % (36.0-46.0); Lymphocytes # (auto) 2.4 10 ^3/uL (0.4-5.4); Lymphocytes % (auto) 34.9 % (10.0-50.0); Mean Corpuscular Hemoglobin 28.6 pg (28.0-32.0); Mean Corpuscular Volume 84.1 fL (80.0-100.0); Monocytes # (auto) 0.7 10 ^3/uL (0-1.3); Monocytes % (auto) 10.6 % (0.0-12.0); Neutrophils # (auto) 3.4 10 ^3/uL (1.6-8.6); Neutrophils % (auto) 50.5 % (37.0-80.0); Nucleated Red Blood Cells % 0.4 %; Platelet Count (auto) 248 10^3/uL (140-450); Red Blood Cells 4.91 10^6/uL (4.0-5.20); Red Cell Distribution Width 13.6 % (11.8-14.3); White Blood Cell 6.8 10^3/uL (4.4-10.8)
--- NOTE | 2024-06-18 07:06 | ECG ---
[facility] Test Date: 2024-06-16 Test Time: 14:02:08 Pat Name: BRONSON OSMAN Department: er Room: 0297T B Gender: F Loop Sewer: evelyn : 2005 Requested By: AMY ROSS Order Number: [id number] Reading MD: Milton Tobin Measurements Intervals [place] Rate: 72 P: 48 SC: 111 QRS: 79 QRSD: 92 T: 18 QT: 372 QTc: 408 Interpretive Statements Sinus rhythm Borderline short [place] interval Borderline Q waves in inferior leads Electronically Signed On 06-19-2024 14:29:19 PDT by Milton Tobin Please click the below link to view image of tracing.
--- NOTE | 2024-06-18 07:06 | ECG ---
[facility] Test Date: 2024-06-16 Test Time: 12:44:05 Pat Name: BRONSON OSMAN Department: er Room: 0297T B Gender: F Puncher: evelyn : 2005 Requested By: AMY ROSS Order Number: [id number] Reading MD: Milton Tobin Measurements Intervals [place] Rate: 85 P: 51 [place]: 117 QRS: 81 QRSD: 87 T: 16 QT: 359 QTc: 427 Interpretive Statements Sinus rhythm Borderline short [place] interval Borderline Q waves in inferior leads Electronically Signed On 06-19-2024 14:28:46 PDT by Milton Tobin Please click the below link to view image of tracing.
[2024-06-18 07:11] LABS: Anion Gap 7 (5-15); Calcium 9.2 mg/dL (8.7-10.4); Carbon Dioxide 28 mmol/L (20-31); Chloride 105 mmol/L (98-107); Potassium 3.1 mmol/L (3.5-5.1); Sodium 140 mmol/L (136-145)
[2024-06-18 07:17] LABS: Blood Urea Nitrogen 14 mg/dL (9-23); Glucose 95 mg/dL (74-106); Magnesium 2.2 mg/dL (1.6-2.6)
[2024-06-18] MEDS: COLCHICINE 0.6 MG CAP PO SCH (11:24)
[2024-06-18] MEDS: POTASSIUM CHL 20 Meq TABLET PO ONE (11:24)
[2024-06-18] MEDS ORDERED: IBUP1TAB5 PO (11:40)
[2024-06-18] MEDS ORDERED: COLC1CAP PO (11:40)
--- NOTE | 2024-06-18 14:15 | DVHDSRES ---
Discharge Summary Date of Admission Resident Creating Document: JANNETH MCCABE RESIDENT Jun 16, 2024 at 22:20 Date of Discharge: Jun 18, 2024 Admitting Diagnosis chest pain Labs/Diagnostic Data: Laboratory Results Test 06/18/24 05:30 06/17/24 08:24 06/17/24 02:06 06/16/24 15:34 White Blood Count 6.8 10^3/uL (4.4-10.8) Red Blood Count 4.91 10^6/uL (4.0-5.20) Hemoglobin 14.0 g/dL (12.2-16.2) Hematocrit 41.2 % (36.0-46.0) Mean Corpuscular Volume 84.1 fL (80.0-100.0) Mean Corpuscular Hemoglobin 28.6 pg (28.0-32.0) Mean Corpuscular Hemoglobin Concent 34.0 g/dL (32.0-36.0) Red Cell Distribution Width 13.6 % (11.8-14.3) Platelet Count 248 10^3/uL (140-450) Mean Platelet Volume 8.4 fL (6.9-10.8) Neutrophils (%) (Auto) 50.5 % (37.0-80.0) Lymphocytes (%) (Auto) 34.9 % (10.0-50.0) Monocytes (%) (Auto) 10.6 % (0.0-12.0) Eosinophils (%) (Auto) 3.5 % (0.0-7.0) Basophils (%) (Auto) 0.5 % (0.0-2.0) Neutrophils # (Auto) 3.4 10 ^3/uL (1.6-8.6) Lymphocytes # (Auto) 2.4 10 ^3/uL (0.4-5.4) Monocytes # (Auto) 0.7 10 ^3/uL (0-1.3) Eosinophils # (Auto) 0.2 10 ^3/uL (0-0.8) Basophils # (Auto) 0 10 ^3/uL (0-0.2) Nucleated Red Blood Cells 0.4 % Sodium Level 140 mmol/L (136-145) Potassium Level 3.1 mmol/L (3.5-5.1) Chloride Level 105 mmol/L (98-107) Carbon Dioxide Level 28 mmol/L (20-31) Anion Gap 7 (5-15) Blood Urea Nitrogen 14 mg/dL (9-23) Creatinine 0.70 mg/dL (0.550-1.02) Glomerular Filtration Rate Calc 127 mL/min (>90) BUN/Creatinine Ratio 20.0 (10.0-20.0) Serum Glucose 95 mg/dL (74-106) Calcium Level 9.2 mg/dL (8.7-10.4) Magnesium Level 2.2 mg/dL (1.6-2.6) D-Dimer, Quantitative 0.26 mg/L FEU (0.0-0.49) Total Bilirubin 0.5 mg/dL (0.2-1.0) Aspartate Amino Transferase (AST) 23 U/L (13-40) Alanine Aminotransferase (ALT) 24 U/L (7-40) Alkaline Phosphatase 84 U/L (46-116) Total Protein 7.2 g/dL (5.7-8.2) Albumin 4.7 g/dL (3.2-4.8) Thyroid Stimulating Hormone (TSH) 2.35 uIU/mL (0.55-4.78) Troponin I High Sensitivity 13 ng/L (</=34) Beta HCG, Quantitative 0.1 mIU/mL (1.5-4.2) Test 06/16/24 15:25 06/16/24 13:08 B-Type Natriuretic Peptide 17.87 pg/mL (0-100) Urine Color Yellow (Yellow) Urine Clarity Turbid (Clear) Urine pH 6.0 (5.0-9.0) Urine Specific [place] 1.029 (1.001-1.035) Urine Protein 1+ (Negative) Urine Ketones Negative (Negative) Urine Blood 2+ /uL (Negative) Urine Nitrite Negative (Negative) Urine Bilirubin Negative (Negative) Urine Urobilinogen 2 mg/dL (Negative) Urine Leukocyte Esterase 3+ /uL (Negative) Urine RBC 15 /hpf (0 - 4) Urine WBC 60 /hpf (0 - 5) Urine Squamous Epithelial Cells Few /hpf (<5) Urine Calcium Oxalate Crystals Mod (None Seen) Urine Bacteria None seen /hpf (None Seen) Urine Mucus Few (None Seen) Urine Glucose Normal mg/dL (Normal) Urine Opiates Screen Neg (NEGATIVE) Urine Fentanyl Screen Neg (NEGATIVE) Urine Barbiturates Screen Neg (NEGATIVE) Urine Phencyclidine Screen Neg (NEGATIVE) Urine Amphetamines Screen Neg (NEGATIVE) Urine Benzodiazepines Screen Neg (NEGATIVE) Urine Cocaine Screen Neg (NEGATIVE) Urine Cannabinoids Screen Neg (NEGATIVE) Other Laboratory Tests 06/18/24 05:30 Brief Hx & Hospital Course: Patient is 19 years old female with no significant past medical or surgical history came with a complaint of left-sided chest pain started 2 days before. As per patient patient started having left-sided chest pain started 2 days before, sharp/pressure-like, 10/10 in severity, radiating to the back, increased with the deep breathing, decreased with sleeping in the left lateral side. Pain was associated with some short of breath and some dizziness. Patient also reported having some nausea and vomiting weekly watery content or foot 3 days before. Patient denied any fever, cough, diarrhea, change in vision, dysarthria acute joint swelling, denied running nose or sick contact, trauma to the chest or scuba diving. EKG sinus rhythm. Lab workup revealed mild hypokalemia potassium 3.2. Troponin and BNP negative. CT angio revealed-No pulmonary embolism. No aortic dissection or aneurysm. Tiny foci of air in the nondependent portion of the left ventricle and pulmonary trunk. CXR no acute cardiopulmonary pathology noted. Urinalysis revealed leukocyte esterase 3+, WBC 60, RBC 15. UDS was negative. Patient was treated for pericarditis along with possible central chest pain. Patient is being discharged home with the colchicine Tobin's mg p.o. daily and ibuprofen p.o. 600 mg t.i.d. p.r.n.. The past two follow up with the PCP in one week and also to follow up with the Cardiology. Patient is being discharged home in hemodynamically stable condition. Patient's meds are sent to the pharmacy electronically. PMH-none PSH- none Allergy- NKDA Personal History/ Social History- Lives with a friend. Denies smoking, alcohol and other drug abuse Patient was seen today at the bedside. Patient reports feeling better today Cardiovascular- deny acute chest pain or shortness of breath or cough or palpitation Respiratory- denies cough or short of breath or wheezing Gastrointestinal- denies any rectal bleeding, nausea or vomiting Musculoskeletal-denies acute joint swelling or tenderness or redness Neurological- denies acute dysarthria, dysphagia, change in vision Psychiatry- denies depression or SI or HI Skin- denies acute rash or purpura General examination- awake, alert, oriented, conversant HEENT- PEERLA, no acute nasal discharge Cardiovascular- chest wall tenderness positive on palpation, S1-S2 audible, rate and rhythm regular, no murmur Respiratory- CTAB, no wheeze or rhonchi Gastrointestinal-nontender, bowel sound+. Nondistended Musculoskeletal-no acute joint swelling or tenderness or redness# Lower extremity- no leg edema Neurological- cranial nerves intact, no acute dysarthria or dysphagia Psychiatry- denies depression or SI or HI Skin- no acute rash or purpura Operations or Procedures Signed PATIENT: BRONSON OSMAN ANGELACCT: [id number] UNIT: [id number] : 2005 LOC: TELE ROOM / BED: [address] [place] [address] AGE / SEX: 19 / F ADM STATUS: ADM IN SERVICE 0756 ORDERING PHYSICIAN: MARCELINA REBOLLEDO RESIDENT PROCEDURE(s): ECIDC - ECHO 2D MODE CARDIAC DOP REASON: chest pain ORDER NUMBER(s): [id number], ACCESSION NUMBER(s): [id number] APPROVED REPORT EXAM: Two-dimensional and M-mode echocardiogram with Doppler and color Doppler. Blood Pressure: 95/61 mmHg INDICATION Chest Pain RISK FACTORS Height: 4'11", Weight: 139 DIMENSIONS LVDd 4.3 (3.8-5.7cm) LA (2D) 3.7 (1.9-4.0cm) Aortic Root 2.7 (2.0- 3.7cm) LVDs 2.8 (2.5-4.0cm) LA (MM) (1.9-4.0cm) Aortic Cusp Exc 1.7 (1.5- 2.0cm) EF (%) 60.0 (55-70%) Rt. Atrium 3.7 (1.9-4.0cm) Asc. Aorta cm IVSd 0.9 (0.7-1.1cm) RV (D) 3.4 (1.8-2.4cm) PWd 0.8 (0.7-1.1cm) Mitral Valve Mitral Mitral Stenosis E wave 0.78m/s MV Mean GR. mmHg A wave 0.35m/s MV Peak GR. mmHg E/A ratio 2.2 2D MVA cm2 DECEL Time 184ms PRESS 1/2 Time ms Aortic Valve Aortic Valve Aortic Stenosis V1 0.90m/s AO Mean GR. 2mmHg V2 1.00m/s AO Peak GR. 4mmHg LVOT Diameter 1.8 (1.8-2.4cm) Doppler MARIO 2.29cm2 Pulmonic Valve V2 0.86m/s Conclusion Normal left ventricular size and dimension. Normal left ventricular systolic function estimated ejection fraction 55%. Normal diastolic function. Normal right ventricular size and dimension. Normal right ventricular systolic function. Normal biatrial size and dimension. Normal aortic valve structure and function. Normal mitral valve structure and function. Normal tricuspid valve structure and function. The pulmonary valve is grossly normal. No pericardial effusion. SIGNED BY: JOEL SMITH MD SIGNED DATE/TIME: 06/17/24 1420 CC: Signed with Addenda PATIENT: BRONSON OSMAN ANGELACCT: [id number] UNIT: [id number] : 2005 LOC: ER ROOM / BED: / AGE / SEX: 19 / F ADM STATUS: REG ER SERVICE 1548 ORDERING PHYSICIAN: AMY ROSS MD PROCEDURE(s): CTACH - CT ANGIO CHEST CONTRAST REASON: chest pain, sob, abnormal ekg ORDER NUMBER(s): [id number], ACCESSION NUMBER(s): [id number] ADDENDUM ADDENDUM # 1 Tiny foci of air in the nondependent portion of the right ventricle and pulmonary trunk. ORIGINAL REPORT CTA Chest with intravenous contrast INDICATION: chest pain, sob, abnormal ekg Comparison Study: None available at time of dictation. TECHNIQUE: Multidetector spiral CTA of the chest was performed of the chest with intravenous contrast. PULMONARY ANGIOGRAPHY PROTOCOL was utilized using a bolus- tracking technique centered on the main pulmonary artery. Axial, coronal and sagittal multiplanar and MIP reformats were performed. Radiation Dose : 1. Chest: CTDI volume is 7.69 mGy. Dose-length product is 239.3 mGy*cm The dose indicators for CT are the volume Computed Tomography (CT) Dose Index (CTDIvol) and the Dose Length Product (DLP), and are measured in units of mGy and mGy-cm, respectively. These indicators are not patient dose, but values generated from the CT scanner acquisition factors. The report includes radiation exposure data for exposures received during this examination. Findings: Pulmonary artery: No evidence of pulmonary embolism. Tiny foci of air seen in the nondependent portion of the pulmonary trunk. Lower neck: Within normal limits. Lungs: Within normal limits. Heart/Vascular Structures: Tiny foci of air seen in the nondependent portion of the left ventricle. Lymph Nodes: No adenopathy Pleura: Within normal limits.. Musculoskeletal: Within normal limits.. Body wall: Within normal limits.. Upper abdomen: Within normal limits. IMPRESSION: No pulmonary embolism. No aortic dissection or aneurysm. Tiny foci of air in the nondependent portion of the left ventricle and pulmonary trunk. Critical findings Critical Result: Tiny of air in the left ventricle and pulmonary trunk. Findings discussed with AMY ROSS at 06/16/2024 05:20 PM, and acknowledged receipt and understanding of the findings. ATED BY: RON EHRNANDEZ DO DICTATED DATE/TIME: 06/16/241753 SIGNED BY: RON HERNANDEZ DO SIGNED DATE/TIME: 06/16/241753 CC: CTA Chest with intravenous contrast INDICATION: chest pain, sob, abnormal ekg Comparison Study: None available at time of dictation. TECHNIQUE: Multidetector spiral CTA of the chest was performed of the chest with intravenous contrast. PULMONARY ANGIOGRAPHY PROTOCOL was utilized using a bolus- tracking technique centered on the main pulmonary artery. Axial, coronal and sagittal multiplanar and MIP reformats were performed. Radiation Dose : 1. Chest: CTDI volume is 7.69 mGy. Dose-length product is 239.3 mGy*cm The dose indicators for CT are the volume Computed Tomography (CT) Dose Index (CTDIvol) and the Dose Length Product (DLP), and are measured in units of mGy and mGy-cm, respectively. These indicators are not patient dose, but values generated from the CT scanner acquisition factors. The report includes radiation exposure data for exposures received during this examination. Findings: Pulmonary artery: No evidence of pulmonary embolism. Tiny foci of air seen in the nondependent portion of the pulmonary trunk. Lower neck: Within normal limits. Lungs: Within normal limits. Heart/Vascular Structures: Tiny foci of air seen in the nondependent portion of the left ventricle. Lymph Nodes: No adenopathy Pleura: Within normal limits.. Musculoskeletal: Within normal limits.. Body wall: Within normal limits.. Upper abdomen: Within normal limits. IMPRESSION: No pulmonary embolism. No aortic dissection or aneurysm. Tiny foci of air in the nondependent portion of the left ventricle and pulmonary trunk. Critical findings Critical Result: Tiny of air in the left ventricle and pulmonary trunk. Findings discussed with AMY ROSS at 06/16/2024 05:20 PM, and acknowledged receipt and understanding of the findings. ATED BY: RON HERNANDEZ DO DICTATED DATE/TIME: 06/16/241720 SIGNED BY: RON HERNANDEZ DO SIGNED DATE/TIME: 06/16/241720 CC: Ph: [phone] DIAGNOSTIC IMAGING Diagnostic Imaging Report : [id number] Signed PATIENT: BRONSON OSMANACCT: [id number] UNIT: [id number] : 2005 LOC: ER ROOM / BED: / AGE / SEX: 19 / F ADM STATUS: REG ER SERVICE 1203 ORDERING PHYSICIAN: AMY ROSS MD PROCEDURE(s): CXR2 - CHEST TWO VIEWS ROUTINE REASON: chest pain ORDER NUMBER(s): [id number], ACCESSION NUMBER(s): [id number] Chest x-ray Technique: PA and lateral views REASON FOR EXAM: chest pain Comparison: None FINDINGS: Heart size is normal. There are no infiltrates or effusions. No bony thoracic abnormalities. IMPRESSION: 1. No acute cardiopulmonary pathology. ATED BY: GARRETT LIN MD DICTATED DATE/TIME: 06/16/241228 SIGNED BY: GARRETT LIN MD SIGNED DATE/TIME: 06/16/241228 CC: Condition at Discharge: Stable Final Diagnosis/Problems List acute pericarditis Musculoskeleta Pain During the left ventricle and pulmonary trunk likely iatrogenic Discharge Disposition: Home Discharge Instruct/Medications Diet: Regular Activity: No Restrictions, As Tolerated Follow Up/Referral: please follow up with your pcp in one week Medications: colchicine Discharge Statement: "Patient was advised to return to the ER or call 911 if any headaches, dizziness, shortness of breath, chest pain, abdominal pain, bleeding, fevers, or worsening of medical condition. Patient was counseled about treatment plan, medications, possible side effects, patientverbalized understanding. All questions were answered to the best of my ability. This discharge took greater then 30 minutes in planning, reviewing documentation, counseling the patient, and discussing with other team members." ASSESSMENT ASSESSMENT Assessment pericarditis Date of Service: Jun 18, 2024 Billing Provider: TERI YANEZ MD Common Visit Codes: 90858-PGZ/OBS DISCH DAY >30min JANNETH MCCABE RESIDENT Jun 18, 2024 14:14 TERI YANEZ MD Jun 20, 2024 20:10
== END 2024-06-18 18:18 | disposition home or self-care (01) | DRG 207 ==
LOC: ER 11:49 → TELE 22:20 → TELE-WESTW 06-17 20:58
PROVIDERS: ADMIT Internal Medicine Geriatric Medicine; ATTEND Internal Medicine Geriatric Medicine
DX: I30.9 Acute pericarditis, unspecified (principal); N30.01 Acute cystitis with hematuria; I95.9 Hypotension, unspecified; E66.3 Overweight; E87.6 Hypokalemia; X58.XXXA Exposure to other specified factors, initial encounter; Y93.89 Activity, other specified; Y92.89 Other specified places as the place of occurrence of the external cause; Y99.8 Other external cause status; Z68.28 Body mass index [BMI] 28.0-28.9, adult
CPT/HCPCS: 36415; 71046; 71275; 80048; 80053; 80307; 81001; 83735; 83880; 84443; 84484; 84702; 85025; 85379; 93005; 93017; 93306; 99291; G0378; J1885

== ENCOUNTER 2025-05-04 17:54 | Emergency (ER) | payer MEDICAID, OTHER ==
[~2025-05-04] VITALS: Ht 149.9 cm; Wt 60.6 kg
[~2025-05-04 17:54] MED LIST: COLC1CAP PO; IBUP1TAB5 PO
[2025-05-04 17:56] VITALS: BP 128/89; RESP 18; TEMP 98.5; O2SAT 95
--- NOTE | 2025-05-04 18:24 | ECG ---
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
[2025-05-04 19:48] VITALS: PULSE 92
--- NOTE | 2025-05-04 19:48 | ED.PDOC ---
History of Present Illness HPI Comments 20-year-old female presents with mother for chief complaint of left-sided chest and abdominal pain, with the associated hoarse speech, dizziness, and nausea. Patient reports on 1 day history of symptoms following initial unprovoked and atraumatic onset, while lying down and resting, yesterday. Pain is a 7 to 8/10 in severity. She states on being stressed through her current occupation, lately. She reports having similar pain in May 2024, with a accompanying hospital visit and admission. She states on having been told on having "air bubbles" and that her heart was "swollen" during aforementioned visit prior to being discharge and cleared with outpatient cardiology with subsequent followup. Patient denies on having any shortness of breath, nausea, vomiting, or further associated symptoms. Per previous hospital admission discharge summary report in June 16, 2024, patient was found with "Tiny foci of air in the nondependent portion of the right ventricle and pulmonary trunk" on previous CT angio chest REVIEW OF SYSTEMS: General: No fever, no chills, or fatigue HEENT: No sore throat, no earache, no congestion, no neck pain. Cardiac: Chest pain. No palpitations. Lungs: No shortness of breath, no cough. GI: Abdominal pain No nausea, no vomiting, no diarrhea, no constipation : No dysuria, frequency, or urgency. No hematuria. Musculoskeletal: No joint pain , no joint swelling, no extremity edema. Skin: No rash, no itching. Neuro: No headache, no dizziness, no weakness PHYSICAL EXAM: General: Awake, alert and oriented. No acute distress. Skin: Skin in warm, dry and intact. Appropriate color for ethnicity. HEENT: The head is normocephalic and atraumatic. Conjunctivae are clear without exudates or hemorrhage. Sclera is non-icteric. EOM are intact. No signs of nystagmus. Eyelids are normal in appearance without swelling or lesions. Oral mucosa is pink and moist Neck: The neck is supple with normal range of motion. No JVD. Cardiac: Heart rate and rhythm are normal. No murmurs, gallops, or rubs are auscultated. Respiratory: No signs of respiratory distress. Lung sounds are clear in all lobes bilaterally without rales, rhonchi, or wheezes. Abdominal: LUQ tenderness. Remaining abdomen is soft, non-tender without distention, guarding or rigidity. Bowel sounds are present and normoactive in all four quadrants. Musculoskeletal: Left-sided chest wall tenderness. Left flank tenderness. Extremities: Upper and lower extremities are atraumatic in appearance without deformity or edema. Neurological: The patient is awake, alert and oriented to person, place, and time with normal speech. Speech is clear. There is no facial asymmetry. Psychiatric: Appropriate mood and affect. Good judgement and insight. Chief Complaint: Abdominal Pain Time Seen by MD: 19:30 Primary Care Provider: NONE Reviewed Notes: Nurses Notes, Medications, Allergies Allergies: Coded Allergies: NO KNOWN ALLERGIES (Unverified , 03/04/17) Home Meds Active Scripts Cephalexin (KEFLEX CAPSULE) 250 Mg Cp, 500 MG PO BID for 7 Days, #14 CAP Prov:YAMILETH DEMPSEY MD 05/04/25 Ibuprofen Micronized (Ibuprofen) 600 Mg Tab, 600 MG PO TID PRN for 15 Days, #45 TAB Prov:MAGO HILL 06/18/24 Colchicine (Colchicine) 0.6 Mg Cap, 0.6 MG PO DAILY for 90 Days, #90 CAP Prov:MAGO HILL 06/18/24 Information Source: Patient, Relative Mode of Arrival: Ambulatory Past Medical History Past Medical History (Other): Tiny foci of air in the nondependent portion of the right ventricle and pulmonary trunk per previous CT angio chest in June 16, 2024 Acute pericarditis Surgical History: Denies all surgeries MANAGER TRUST History: No Pertinent MANAGER TRUST History Family History Family History: No family hx of DM, No family hx of Heart annie, No family hx of HTN Social History Smoker: Non-Smoker Alcohol: Denies ETOH Use Drugs: Denies Drug Use Lives In: Home Was a procedure done? Was a procedure done?: No EKG EKG : Pulse Rate (adult): 92 [place]: Normal Cardiac Rhythm: NSR Block: None Hypertrophy: None ST: Normal Differential Dx Considerations may include: Differential diagnoses considered include acute ischemic coronary syndrome, aortic dissection, cardiac tamponade, mediastinitis, pulmonary embolus, pneumothorax, tension pneumothorax, esophageal rupture, coronary artery vasospasm, myocarditis, pericarditis, pneumonia, pulmonary edema, esophageal tear, pancreatitis, aortic stenosis, dilated cardiomyopathy, hypertrophic cardiomyopathy, mitral valve prolapse, malignancy, pleuritis, pneumomediastinum, primary pulmonary hypertension, cholecystitis, esophageal spasm, esophagus, gastritis, GERD, peptic ulcer disease, costochondritis, fibromyalgia, rib fracture, herpes zoster, radicular syndromes, thoracic outlet syndrome, somatization. X-Ray, Labs, Meds, VS Vital Signs Date Time Temp Pulse Resp B/P (MAP) Pulse Ox O2 Delivery O2 Flow Rate FiO2 05/04/25 19:48 92 05/04/25 18:11 92 05/04/25 17:56 98.5 101 18 128/89 95 98.5 Lab Test 05/04/25 21:10 05/04/25 21:00 05/04/25 19:58 Range/Units Troponin I High Sensitivity < 3 L < 3 L </=34 ng/L Urine Color Light-yellow Yellow Urine Clarity Turbid H Clear Urine pH 6.0 5.0-9.0 Urine Specific [place] 1.018 1.001-1.035 Urine Protein Trace H Negative Urine Ketones Negative Negative Urine Blood Negative Negative /uL Urine Nitrite 2+ H Negative Urine Bilirubin Negative Negative Urine Urobilinogen Normal Negative mg/dL Urine Leukocyte Esterase 3+ Negative /uL Urine RBC 5 0 - 4 /hpf Urine Microscopic WBC 106 H 0-5 /HPF Urine Squamous Epithelial Cells Few <5 /hpf Urine Bacteria Few H None Seen /hpf Urine Mucus Few None Seen Urine Glucose Normal Normal mg/dL White Blood Count 10.1 4.4-10.8 10^3/uL Red Blood Count 5.23 H 4.0-5.20 10^6/uL Hemoglobin 15.2 12.2-16.2 g/dL Hematocrit 43.3 36.0-46.0 % Mean Corpuscular Volume 82.8 80.0-100.0 fL Mean Corpuscular Hemoglobin 29.0 28.0-32.0 pg Mean Corpuscular Hemoglobin Concent 35.0 32.0-36.0 g/dL Red Cell Distribution Width 14.0 11.8-14.3 % Platelet Count 279 140-450 10^3/uL Mean Platelet Volume 7.5 6.9-10.8 fL Neutrophils (%) (Auto) 57.8 37.0-80.0 % Lymphocytes (%) (Auto) 30.3 10.0-50.0 % Monocytes (%) (Auto) 8.3 0.0-12.0 % Eosinophils (%) (Auto) 3.2 0.0-7.0 % Basophils (%) (Auto) 0.4 0.0-2.0 % Neutrophils # (Auto) 5.8 1.6-8.6 10 ^3/uL Lymphocytes # (Auto) 3.1 0.4-5.4 10 ^3/uL Monocytes # (Auto) 0.8 0-1.3 10 ^3/uL Eosinophils # (Auto) 0.3 0-0.8 10 ^3/uL Basophils # (Auto) 0 0-0.2 10 ^3/uL Nucleated Red Blood Cells 0.2 % Sodium Level 141 136-145 mmol/L Potassium Level 3.9 3.5-5.1 mmol/L Chloride Level 106 98-107 mmol/L Carbon Dioxide Level 26 20-31 mmol/L Anion Gap 9 5-15 Blood Urea Nitrogen 11 9-23 mg/dL Creatinine 0.66 0.550-1.02 mg/dL Glomerular Filtration Rate Calc 128 >90 mL/min BUN/Creatinine Ratio 16.7 10.0-20.0 Serum Glucose 82 74-106 mg/dL Calcium Level 9.2 8.7-10.4 mg/dL B-Type Natriuretic Peptide 1.06 0-100 pg/mL [place] [id number] Ph: [phone] DIAGNOSTIC IMAGING Diagnostic Imaging Report : [id number] Signed PATIENT: BRONSON OSMAN ACCT: [id number] UNIT: [id number] : 2005 LOC: ER ROOM / BED: / AGE / SEX: 20 / F ADM STATUS: REG ER SERVICE 45 ORDERING PHYSICIAN: YAMILETH DEMPSEY MD PROCEDURE(s): CTCAP - CHST AB PEL WO CON-NO IV/ORAL REASON: History of air foci in ventricle/pulmonary trunk. Chest pain ORDER NUMBER(s): [id number], ACCESSION NUMBER(s): [id number] Procedure: CT CHST AB PEL WO CON-NO IV/ORAL Study Date and Requested Time: 05/04/2025 08:17 PM History: History of air foci in ventricle/pulmonary trunk. Chest pain Comparison: None Dose: CTDI: 8.73 mGy DLP: 4.61 mGycm Technique: Multiplanar images obtained through the chest, abdomen and pelvis without contrast Findings: Chest : The thyroid gland is unremarkable. Heart size is within normal limits. No evidence of aortic aneurysm . The pulmonary trunk is normal in size. No significant mediastinal lymphadenopathy. No pneumothorax, pleural effusion or focal airspace consolidation. Soft tissues are unremarkable. No evidence of acute osseous abnormalities. Abdomen and pelvis: Mild hepatosplenomegaly with no focal lesions. Gallbladder is partially decompressed otherwise unremarkable. Unremarkable. Adrenal glands are unremarkable. 3 mm nonobstructing left renal lower pole calculus. Otherwise, kidneys, and ureters unremarkable. Mild wall thickening of the urinary bladder which is most likely from inadequate distention. Uterus and adnexa are unremarkable. Stomach is unremarkable. Small bowel loops are unremarkable. Appendix is unremarkable. Moderate amount of fecal material within the colon. No evidence of intraperitoneal free air or free fluid. No evidence of aortic aneurysm. No significant lymphadenopathy. The soft tissues are unremarkable. No evidence of acute osseous abnormalities. Sclerotic focus of the right medial pubic bone which may represent a small bone island. Impression: No evidence of acute intrathoracic abnormalities. No evidence of acute abdominopelvic abnormalities. Punctate nonobstructing left renal calculus. Moderate amount of fecal material within the colon. ATED BY: CARLENE CARVER DO DICTATED DATE/TIME: 05/04/252053 SIGNED BY: CARLENE CARVER DO SIGNED DATE/TIME: 05/04/252053 CC: Time of 1ST Reevaluation: 20:00 Reevaluation 1ST: Unchanged Patient Education/Counseling: Treatment, Need For Follow Up Family Education/Counseling: Treatment, Need For Follow Up SEPSIS Sepsis Screen Date sepsis recognized/suspect: May 04, 2025 Time Sepsis recognized/suspect: 1802 Recent Procedure: No On Antibiotic Therapy: No Respiratory Rate >20: No Heart Rate >90: Yes Temp<36 C (96.8 F) or >38.3 C: No SBP <90 or MAP <65 mmHG: No New Acute Mental Status Change: No Is the patient on CPAP, BIPAP,: No Physician Orders Chst Ab Pel Wo Con-No Iv/Oral (05/04/25 19:46) Urine Bacterial Culture (05/04/25 22:01) Vital Signs Date Time Temp Pulse Resp B/P (MAP) Pulse Ox O2 Delivery O2 Flow Rate FiO2 05/04/25 19:48 92 05/04/25 18:11 92 05/04/25 17:56 98.5 101 18 128/89 95 98.5 Laboratory Tests Test 05/04/25 19:58 White Blood Count 10.1 10^3/uL (4.4-10.8) Departure 1 Departure Time of Disposition: 21:06 Impression: Primary Impression: Chest pain Additional Impressions: Left flank pain Urinary tract infection Disposition: HOME / SELF CARE / HOMELESS Condition: Stable Additional Instructions: ED DISCHARGE INSTRUCTIONS Instructions: Please read all instructions provided in this packet carefully. Although you have been discharged from the Emergency Department, this does not mean that you have a "clean bill of health". No definitive diagnosis for your symptoms has been made today. It is possible that you are in the process of developing a serious illness. This is why you must return to the ED without fail if any new or worsening symptoms (especially if your symptoms include chest pain, trouble breathing, abdominal pain, fever, headache, confusion, trouble seeing, or trouble walking) It is also very important that you see a primary care provider (PCP) within the next 3-5 days to follow up. If you are unable to get an appointment, return to the ED for re-evaluation. Follow up with the primary care provider about the following abnormal results on your CAT scan.: Impression: No evidence of acute intrathoracic abnormalities. No evidence of acute abdominopelvic abnormalities. Punctate nonobstructing left renal calculus. Moderate amount of fecal material within the colon. CHEST PAIN EDUCATION There are many things that can cause chest pain. Some are not serious and will get better on their own in a few days. But some kinds of chest pain need more testing and treatment. Your doctor may have recommended a follow-up visit in the next few days. If you are not getting better, you may need more tests or treatment. Even though your doctor has released you, you still need to watch for any problems. The doctor carefully checked you, but sometimes problems can develop later. If you have new symptoms or if your symptoms do not get better, get medical care right away. If you have worse or different chest pain or pressure that lasts more than 5 minutes or you passed out (lost consciousness), call 911 or seek other emergency help right away. A medical visit is only one step in your treatment. Even if you feel better, you still need to do what your doctor recommends, such as going to all suggested follow-up appointments and taking medicines exactly as directed. This will help you recover and help prevent future problems. How can you care for yourself at home? Rest until you feel better. Take your medicine exactly as prescribed. Call your doctor if you think you are having a problem with your medicine. Do not drive after taking a prescription pain medicine. When should you call for help? Call 911 if: You passed out (lost consciousness). You have severe difficulty breathing. You have symptoms of a heart attack. These may include: Chest pain or pressure, or a strange feeling in your chest. Sweating. Shortness of breath. Nausea or vomiting. Pain, pressure, or a strange feeling in your back, neck, jaw, or upper belly or in one or both shoulders or arms. Lightheadedness or sudden weakness. A fast or irregular heartbeat. After you call 911, the lacing operator may tell you to chew 1 adult-strength or 2 to 4 low-dose aspirin. Wait for an ambulance. Do not try to drive yourself. Call your doctor now or seek immediate medical care if: You have any trouble breathing. You have new or different chest pain. You are dizzy or lightheaded, or you feel like you may faint. Watch closely for changes in your health, and be sure to contact your doctor if you do not get better as expected. Current as of: March 19, 2024 Author: [employer] Staff? Abdominal Pain: Care Instructions Overview Abdominal pain has many possible causes. Some aren't serious and get better on their own in a few days. Others need more testing and treatment. If your pain continues or gets worse, you need to be rechecked and may need more tests to find out what is wrong. You may need surgery to correct the problem. Don't ignore new symptoms, such as fever, nausea and vomiting, urination problems, pain that gets worse, and dizziness. These may be signs of a more serious problem. If you are not getting better, you may need more tests or treatment. The doctor has checked you carefully, but problems can develop later. If you notice any problems or new symptoms, get medical treatment right away. Follow-up care is a hernandez part of your treatment and safety. Be sure to make and go to all appointments, and call your doctor if you are having problems. It's also a good idea to know your test results and keep a list of the medicines you take. How can you care for yourself at home? Rest until you feel better. To prevent dehydration, drink plenty of fluids. Choose water and other clear liquids until you feel better. If you have kidney, heart, or liver disease and have to limit fluids, talk with your doctor before you increase the amount of fluids you drink. When you feel like eating, start with small amounts. Do not have alcohol, caffeine, or spicy, hot, or high-fat foods for a day or two. Avoid anti-inflammatory medicines such as aspirin, ibuprofen (Advil, Motrin), and naproxen (Aleve). These can cause stomach upset. Talk to your doctor if you take daily aspirin for another health problem. When should you call for help? Call 911 anytime you think you may need emergency care. For example, call if: You passed out (lost consciousness). You pass maroon or very bloody stools. You vomit blood or what looks like coffee grounds. You have severe belly pain. Call your doctor now or seek immediate medical care if: Your pain gets worse, especially if it becomes focused in one area of your belly. You have a new or higher fever. Your stools are black and look like tar, or they have streaks of blood. You have unexpected vaginal bleeding. You have symptoms of a urinary tract infection. These may include: Pain when you urinate. Urinating more often than usual. Blood in your urine. You are dizzy or lightheaded, or you feel like you may faint. Watch closely for changes in your health, and be sure to contact your doctor if: You are not getting better as expected. Credits for Abdominal Pain: Care Instructions Current as of: June 07, 2023 Author: [employer] Staff Clinical Review Board [employer] education is reviewed by a team that includes physicians, nurses, advanced practitioners, registered dieticians, and other healthcare professionals. e-Prescriptions Cephalexin (KEFLEX CAPSULE) 250 Mg Cp 500 MG PO BID for 7 Days, #14 CAP Prov: YAMILETH DEMPSEY MD 05/04/25 Comments MDM: 20-year-old female with left-sided chest pain, left flank pain for 1 day. Urinalysis suggestive of UTI. EKG negative for signs of ischemia. High sensitivity troponin negative. CT chest/abdomen/pelvis scan shows no acute process or air within the ventricle or pulmonary trunk. No other thoracic or intra-abdominal process. There is a punctate nonobstructing calculus on the left Presentation not suggestive of acute coronary syndrome, pulmonary embolism or aortic dissection. Patient improved at time of discharge. Patient has not been hypoxic, in respiratory distress or dyspneic during the ED observation. Patient able to ambulate without difficulty. No peritoneal signs on abdominal exam. No evidence of acute abdomen at this time. patient is well appearing. Labs show no leukocytosis or RICK.. Patient is afebrile. Patient is not hypotensive. Low suspicion for acute hepatobiliary disease (including acute cholecystitis, acute pancreatitis, PUD (including perforation), acute infectious process (pneumonia, hepatitis, pyelonephritis), acute appendicitis, vascular catastrophe, bowel obstructions, viscous perforation. Presentation not consistent with other acute, emergent causes of flank pain at this time. Patient felt stable for discharge to follow up with PCP promptly. Patient advised to return to the ED with any new, worsening or concerning symptoms or inability to follow up with PCP. Extensive evaluation was performed in attempt to identify or rule out: (See differential diagnosis section) The following tests were ordered, and results were reviewed by me and discussed with patient: (See diagnostic results section) The following test were independently interpreted by me: N/A I reviewed and agreed with the following test results read by other providers: N/A I reviewed the following notes from the pt's past medical encounters: March 04, 2017 and June 16, 2024 encounters for abdominal pain and chest pain, respect ively. Additional information was gathered from interviewing the following independent historians: Mother Discussion of management or test interpretation with external physician/other qualified health ambulatory care coordinator: N/A Decision regarding hospitalization or escalation of hospital level of care: Risks and benefits of admission for further treatment of patient's condition was considered however due to patient's stable condition patient will be discharged to follow up closely or return to care for worsening of condition or inability to follow up. Critical Care Note Critical Care Time?: No Stability Stability form required: No Heart Score Heart Score: Heart Score Response (Comments) Value History Slightly Suspicious 0 EKG Normal 0 Age <45 0 Risk Factors No known risk factors 0 Troponin Normal limit 0 Total 0 I personally scribed for YAMILETH DEMPSEY MD ([email or web address]) on 05/04/25 at 19:48. Electronically submitted by Kit Canas ([email or web address]). I personally scribed for YAMILETH DEMPSEY MD ([email or web address]) on 05/04/25 at 21:05. Electronically submitted by Kit Canas ([email or web address]). I personally scribed for YAMILETH DEMPSEY MD ([email or web address]) on 05/04/25 at 21:06. Electronically submitted by Kit Canas ([email or web address]). YAMILETH DEMPSEY MD May 04, 2025 19:48
[2025-05-04 20:17] LABS: Hematocrit 43.3 % (36.0-46.0); Hemoglobin 15.2 g/dL (12.2-16.2); Mean Corpuscular Hemoglobin 29.0 pg (28.0-32.0); Mean Corpuscular Volume 82.8 fL (80.0-100.0); Nucleated Red Blood Cells % 0.2 %
[2025-05-04 20:23] LABS: Chloride 106 mmol/L (98-107); Potassium 3.9 mmol/L (3.5-5.1); Sodium 141 mmol/L (136-145)
[2025-05-04 20:25] LABS: Anion Gap 9 (5-15); Calcium 9.2 mg/dL (8.7-10.4); Carbon Dioxide 26 mmol/L (20-31)
[2025-05-04 20:30] LABS: BUN/Creatinine Ratio 16.7 (10.0-20.0); Blood Urea Nitrogen 11 mg/dL (9-23); Glucose 82 mg/dL (74-106)
--- NOTE | 2025-05-04 20:56 | DVH ---
Procedure: CT CHST AB PEL WO CON-NO IV/ORAL Study Date and Requested Time : 05/04/2025 08:17 PM History: History of air foci in ventricle/pulmonary trunk. Chest pain Comparison: None Dose: CTDI: 8.73 mGy DLP: 4.61 mGycm Technique: Multiplanar images obtained through the chest, abdomen and pelvis without contrast Findings: Chest : The thyroid gland is unremarkable. Heart size is within normal limits. No evidence of aortic aneurysm . The pulmonary trunk is normal in size. No significant mediastinal lymphadenopathy. No pneumothorax, pleural effusion or focal airspace consolidation. Soft tissues are unremarkable. No evidence of acute osseous abnormalities. Abdomen and pelvis: Mild hepatosplenomegaly with no focal lesions. Gallbladder is partially decompressed otherwise unrema rkable. Unremarkable. Adrenal glands are unremarkable. 3 mm nonobstructing left renal lower pole calculus. Otherwise, kidneys, and ureters unremarkable. Mi ld wall thickening of the urinary bladder which is most likely from inadequate distention. Uterus and adnexa are unremarkable. Stomach is unremarkable. Small bowel loops are unremarkable. Appendix is unremarkable. Moderate amou nt of fecal material within the colon. No evidence of intraperitoneal free air or free fluid. No evidence of aortic aneurysm. No significant lymphadenopathy. The soft tissues are unremarkable. No evidence of acute osseous abnormalities. Sclerotic focus of the right medial pubic bone which may represent a small bone island. Impression: No evidence of acute intrathoracic abnormalities. No evidence of acute abdominopelvic abnormalities. Punctate nonobstructing left renal calculus. Moderate amount of fecal material within the colon.
[2025-05-04 21:49] LABS: Urine Protein, UAD TRACE (Negative)
[2025-05-04] MEDS ORDERED: CEPH250C PO (22:02)
[2025-05-04] MEDS: ACETAMINOPHEN 500 MG TAB or CAP PO ONE (23:30)
[2025-05-04] MEDS: KETOROLAC TROMETH 30 MG/ML 1ML VIAL IM ONE (23:30)
== END 2025-05-04 23:30 | disposition home or self-care (01) ==
LOC: ER 17:54
DX: N39.0 Urinary tract infection, site not specified (principal); R07.89 Other chest pain; Z79.899 Other long term (current) drug therapy
CPT/HCPCS: 36415; 71250; 74176; 80048; 81001; 83880; 84484; 85025; 87086; 87088; 87186; 93005